=== PATIENT | female | born 1995 | race Caucasian/White ===

== ENCOUNTER 2018-06-21 11:46 | Outpatient (CLI) | payer MEDICAID ==
[2018-06-22 11:26] LABS: HEPATITIS C ANTIBODY NON-REACTIVE (NON-REACTIVE)
[2018-06-22 14:16] LABS: HIV AG/AB 4TH GEN NON-REACTIVE (NON-REACTIVE)
[2018-06-25 11:41] LABS: HSV 1 IGG TYPE SPECIFIC AB <0.90 index; HSV 2 IGG TYPE SPECIFIC AB <0.90 index
== END 2018-06-21 11:47 | disposition home or self-care (01) ==
LOC: LAB 11:46
PROVIDERS: ATTEND Nurse Practitioner Obstetrics & Gynecology
DX: Z11.3 Encounter for screening for infections with a predominantly sexual mode of transmission (principal)
CPT/HCPCS: 36415; 81599; 86592; 86695; 86696; 86803; 87389; 87529

== ENCOUNTER 2019-03-03 08:34 | Outpatient (CLI) | payer MEDICAID ==
--- NOTE | 2019-03-03 14:12 | Ultrasound Report ---
Reason: MASTALGIA Procedure Date: 03/03/2019 Accession Number: [id number] / [id number] Procedure: US - Breast Unilateral Limited CPT Code: Final Report FULL RESULT: EXAM: Breast Unilateral Limited, Breast Unilateral Limited DATE: 03/03/2019 9:59 AM CLINICAL HISTORY: MASTALGIA COMPARISON: None. TECHNIQUE: Whole breast ultrasound was performed of the left and right breast. Color Doppler was employed as appropriate. FINDINGS: All 4 quadrants as well as the retroareolar area were imaged bilaterally. No suspicious mass or collection is seen in either side. Normal-appearing breast glandular tissue is identified. In the left breast in the retroareolar region is a 0.7 cm wider than tall simple appearing cyst, typically benign. IMPRESSION: Benign findings RECOMMENDATION: Recommend routine annual Screening mammography starting at the age of 40 unless otherwise clinically indicated by risk factors. BIRADS CATEGORY 2: Benign findings RADIA
--- NOTE | 2019-03-03 14:12 | Ultrasound Report ---
Reason: MASTALGIA Procedure Date: 03/03/2019 Accession Number: [id number] / [id number] Procedure: US - Breast Unilateral Limited CPT Code: Final Report FULL RESULT: EXAM: Breast Unilateral Limited, Breast Unilateral Limited DATE: 03/03/2019 9:59 AM CLINICAL HISTORY: MASTALGIA COMPARISON: None. TECHNIQUE: Whole breast ultrasound was performed of the left and right breast. Color Doppler was employed as appropriate. FINDINGS: All 4 quadrants as well as the retroareolar area were imaged bilaterally. No suspicious mass or collection is seen in either side. Normal-appearing breast glandular tissue is identified. In the left breast in the retroareolar region is a 0.7 cm wider than tall simple appearing cyst, typically benign. IMPRESSION: Benign findings RECOMMENDATION: Recommend routine annual Screening mammography starting at the age of 40 unless otherwise clinically indicated by risk factors. BIRADS CATEGORY 2: Benign findings RADIA
== END 2019-03-03 08:35 | disposition home or self-care (01) ==
LOC: DI 08:34
PROVIDERS: ATTEND Physician Assistant
DX: N64.4 Mastodynia (principal); Z80.3 Family history of malignant neoplasm of breast
CPT/HCPCS: 76642

== ENCOUNTER 2019-09-17 08:00 | Outpatient (CLI) | payer MEDICAID | END 2019-09-17 23:59 | disposition home or self-care (01) | LOC: LAB.R 08:00 | PROVIDERS: ATTEND Nurse Practitioner Family | DX: Z20.828 Contact with and (suspected) exposure to other viral communicable diseases (principal); J02.9 Acute pharyngitis, unspecified | CPT/HCPCS: 81599 ==

== ENCOUNTER 2020-08-05 16:43 | Outpatient (CLI) | payer MEDICAID | END 2020-08-05 16:44 | disposition home or self-care (01) | LOC: COV 16:43 | PROVIDERS: ATTEND Family Medicine | DX: Z20.822 Contact with and (suspected) exposure to COVID-19 (principal) ==

== ENCOUNTER 2020-12-17 13:31 | Outpatient (CLI) | payer MEDICAID ==
--- NOTE | 2020-12-21 13:15 | Ultrasound Report ---
LIMITED ULTRASOUND OF RIGHT BREAST AND AXILLA: 12/17/2020 CLINICAL: Palpable right breast lump by physician. No prior exams were available for comparison. Color flow and real-time ultrasound of the right breast 10-12 o'clock, and axilla regions were perfor med. Ann scale images of the real-time examination were reviewed. The breast tissue of the right breast is homogeneous dense. There is a 1.2 cm x 0.7 cm x 0.4 cm irregular area of fibroglandular tissue in the right breast at 10 o'clock middle depth 8 cm from the nipple with the long axis parallel to the skin. This irregular a anay of fibroglandular tissue is hypoechoic with posterior acoustic enhancement. Color flow imaging d emonstrates that there is no vascularity present. This may correlate as palpated. IMPRESSION: PROBABLY BENIGN The 1.2 cm irregular area of fibroglandular tissue in the right breast has a differential diagnosis o f a possible developing fibroadenoma, or focal glandular tissue amidst dense fibrous tissue, and is probably benign. A follow-up right ultrasound in 6 months is recommended to demonstrate stability. Findings and recommendations were conveyed to the patient at time of exam. This exam was interpreted at Station ID: [id number]. Electronically Signed By: Judy bryant/:12/17/2020 14:49:52 Ultrasound BI-RADS: 3 Probably benign BI-RADS CATEGORY: (3) - 3 Ultrasound [id number] 6 month follow-up LATERALITY: (R)
== END 2020-12-17 13:32 | disposition home or self-care (01) ==
LOC: DI 13:31
PROVIDERS: ATTEND Obstetrics & Gynecology
DX: R92.8 Other abnormal and inconclusive findings on diagnostic imaging of breast (principal); Z80.3 Family history of malignant neoplasm of breast; Z11.3 Encounter for screening for infections with a predominantly sexual mode of transmission
CPT/HCPCS: 81599; 86592; 86695; 86696; 86803; 87340; 87389

== ENCOUNTER 2020-12-17 15:03 | Outpatient (CLI) | payer MEDICAID ==
[2020-12-18 10:51] LABS: HEPATITIS B SURFACE ANTIGEN NON-REACTIVE (NON-REACTIVE); HEPATITIS C ANTIBODY NON-REACTIVE (NON-REACTIVE)
[2020-12-18 15:12] LABS: HIV AG/AB 4TH GEN NON-REACTIVE (NON-REACTIVE)
[2020-12-22 12:11] LABS: HSV 1 IGG TYPE SPECIFIC AB <0.90 index; HSV 2 IGG TYPE SPECIFIC AB <0.90 index
== END 2020-12-17 15:04 | disposition home or self-care (01) ==
LOC: LAB 15:03
PROVIDERS: ATTEND Obstetrics & Gynecology
DX: Z11.3 Encounter for screening for infections with a predominantly sexual mode of transmission (principal)
CPT/HCPCS: 81599; 86592; 86695; 86696; 86803; 87340; 87389

== ENCOUNTER 2021-03-01 16:13 | Outpatient (CLI) | payer MEDICAID ==
[2021-03-01 23:02] LABS: CHLAMYDIA TRACHOMATIS DNA NEGATIVE (NEGATIVE); NEISSERIA GONORRHOEAE DNA NEGATIVE (NEGATIVE); TRICHOMONAS VAGINALIS DNA NEGATIVE (NEGATIVE)
[2021-03-01 23:46] LABS: BACTERIAL VAGINOSIS DNA NEGATIVE (NEGATIVE); CANDIDA GLABRATA DNA NEGATIVE (NEGATIVE); CANDIDA GROUP DNA POSITIVE (NEGATIVE); CANDIDA KRUSEI DNA NEGATIVE (NEGATIVE); TRICHOMONAS VAGINALIS DNA NEGATIVE (NEGATIVE)
== END 2021-03-01 23:59 | disposition home or self-care (01) ==
LOC: LAB.N 16:13
PROVIDERS: ATTEND Family Medicine
DX: R10.2 Pelvic and perineal pain (principal)
CPT/HCPCS: 87086; 87491; 87591; 87661; 87801

== ENCOUNTER 2021-03-23 08:00 | Outpatient (CLI) | payer MEDICAID ==
[2021-03-23 16:49] LABS: BILIRUBIN,URINE NEGATIVE (NEGATIVE); GLUCOSE, URINE (UA) NEGATIVE (NEGATIVE); KETONES,URINE (UA) NEGATIVE (NEGATIVE); LEUKOCYTE ESTERASE, URINE NEGATIVE (NEGATIVE); NITRITE,URINE NEGATIVE (NEGATIVE); OCCULT BLOOD,URINE NEGATIVE (NEGATIVE); PROTEIN,URINE NEGATIVE (NEGATIVE); UROBILINOGEN,URINE 0.2 (NORMAL) E.U./dL (NORMAL)
[2021-03-23 16:57] LABS: CLARITY,URINE CLEAR (CLEAR)
[2021-03-23 16:59] LABS: BACTERIA,URINE Rare /HPF (None Seen); RBC,URINE 0-5 /HPF (0-5); SQUAMOUS EPITHELIAL CELL,UR RARE Squamous (<= Few); WBC,URINE 0-3 /HPF (0-5)
[2021-03-23 21:02] LABS: BACTERIAL VAGINOSIS DNA NEGATIVE (NEGATIVE); CANDIDA GLABRATA DNA NEGATIVE (NEGATIVE); CANDIDA GROUP DNA POSITIVE (NEGATIVE); CANDIDA KRUSEI DNA NEGATIVE (NEGATIVE); TRICHOMONAS VAGINALIS DNA NEGATIVE (NEGATIVE)
[2021-03-23 22:02] LABS: CHLAMYDIA TRACHOMATIS DNA NEGATIVE (NEGATIVE); NEISSERIA GONORRHOEAE DNA NEGATIVE (NEGATIVE); TRICHOMONAS VAGINALIS DNA NEGATIVE (NEGATIVE)
== END 2021-03-23 23:59 ==
LOC: LAB.WC 08:00
PROVIDERS: ATTEND Nurse Practitioner Obstetrics & Gynecology
DX: R10.2 Pelvic and perineal pain (principal)
CPT/HCPCS: 81001; 87086; 87491; 87591; 87661; 87801

== ENCOUNTER 2021-05-05 13:58 | Outpatient (CLI) | payer MEDICAID ==
--- NOTE | 2021-05-06 10:00 | Ultrasound Report ---
LIMITED ULTRASOUND OF RIGHT BREAST: 05/05/2021 CLINICAL: Short term follow up of the right breast. Comparison is made to exams dated: 12/17/2020 ultrasound and 03/03/2019 ultrasound - [facility]. Color flow ultrasound of the right breast 10 o'clock region was performed on the areas of interest. Ann scale images of the real-time examination were reviewed. There is a 0.9 cm x 0.3 cm x 0.7 cm hypoechoic heterogeneous mass resembling a cluster of oval cysts with septated internal flores in the right breast at 10 o'clock middle depth 8 cm from the nipple. Th is cluster is hypoechoic with internal echoes. Color flow imaging demonstrates that there is no vasc ularity present. Findings are stable to slightly decreased in size compared to the prior study. IMPRESSION: PROBABLY BENIGN The 0.9 cm x 0.3 cm x 0.7 cm probable cluster of oval cysts in the right breast is probably benign. A follow-up ultrasound in 6 months is recommended. A follow-up ultrasound in 6 months is recommended to demonstrate stability. This exam was interpreted at Station ID: [id number]. Electronically Signed By: Rashi Young M.D. ddp/:05/05/2021 14:37:12 Ultrasound BI-RADS: 3 Probably benign BI-RADS CATEGORY: (3) - 3 Ultrasound [id number] 6 month follow-up LATERALITY: (B)
== END 2021-05-05 13:59 | disposition home or self-care (01) ==
LOC: DI 13:58
PROVIDERS: ATTEND Obstetrics & Gynecology
DX: N63.11 Unspecified lump in the right breast, upper outer quadrant (principal)

== ENCOUNTER 2021-10-27 11:41 | Outpatient (CLI) | payer MEDICAID ==
[2021-10-28 03:08] LABS: HBsAG SCREEN Negative (Negative)
[2021-10-28 05:10] LABS: HCV AB <0.1 s/co ratio (0.0-0.9); HIV SCREEN 4TH GENERATION Non Reactive (Non Reactive)
[2021-10-28 06:10] LABS: RPR Non Reactive (Non Reactive)
== END 2021-10-27 11:42 | disposition home or self-care (01) ==
LOC: LAB.N 11:41
PROVIDERS: ATTEND Nurse Practitioner Obstetrics & Gynecology
DX: Z11.3 Encounter for screening for infections with a predominantly sexual mode of transmission (principal)
CPT/HCPCS: 36415; 86592; 86803; 87340; 87389

== ENCOUNTER 2021-11-09 13:22 | Outpatient (CLI) | payer MEDICAID ==
--- NOTE | 2021-11-10 09:36 | Ultrasound Report ---
LIMITED ULTRASOUND OF RIGHT BREAST: 11/09/2021 CLINICAL: Patient returns for short term follow-up of a probably benign mass in the right breast. Comparison is made to exams dated: 05/05/2021 ultrasound, 12/17/2020 ultrasound, and 03/03/2019 [facility]. Color flow and real-time ultrasound of the right breast 10 o'clock region were performed. Ann scale images of the real-time examination were reviewed. There is a 1.5 cm x 1 cm x 0.4 cm irregular cluster of cysts in the right breast at 10 o'clock middle depth 8 cm from the nipple. This abnormality has not significantly changed over the past two exams. Color flow imaging demonstrates that there is no vascularity present. IMPRESSION: PROBABLY BENIGN The 1.5 cm cluster of cysts in the right breast is probably benign, most likely fibrocystic tissue. A follow-up right ultrasound in 6 months is recommended to demonstrate stability. Findings and recommendations were conveyed to the patient at time of exam. This exam was interpreted at Station ID: [id number]. Electronically Signed By: Judy bryant/:11/09/2021 14:18:17 Ultrasound BI-RADS: 3 Probably benign BI-RADS CATEGORY: (3) - 3 Ultrasound [id number] 6 month follow-up LATERALITY: (R)
== END 2021-11-09 13:23 | disposition home or self-care (01) ==
LOC: DI 13:22
PROVIDERS: ATTEND Physician Assistant
DX: N60.11 Diffuse cystic mastopathy of right breast (principal)

== ENCOUNTER 2021-11-16 14:13 | Outpatient (CLI) | payer MEDICAID ==
[2021-11-16 17:48] LABS: BASOPHILS % (AUTO) 0.3 %; EOSINOPHILS # (AUTO) 0.1 10^3/uL (0.0-0.7); EOSINOPHILS % (AUTO) 1.2 %; HGB - HEMOGLOBIN 12.7 g/dL (12.0-16.0); LYMPHOCYTES % (AUTO) 33.1 %; MEAN CORPUSCULAR HEMOGLOBIN 26.6 pg (27.0-31.0); MEAN CORPUSCULAR HGB CONC 31.8 g/dL (32.0-36.0); MEAN CORPUSCULAR VOLUME 83.9 fL (81.0-99.0); MEAN PLATELET VOLUME 9.2 fL (7.9-10.8); MONOCYTES # (AUTO) 0.6 10^3/uL (0.0-1.0); MONOCYTES % (AUTO) 10.2 %; NEUTROPHILS # (AUTO) 3.2 10^3/uL (1.5-6.6); NEUTROPHILS % (AUTO) 54.9 %; PLT - PLATELET COUNT 299 10^3/uL (130-450); RED BLOOD COUNT 4.77 10^6/uL (4.20-5.40); RED CELL DISTRIBUTION WIDTH 13.5 % (12.0-15.0); WHITE BLOOD COUNT 5.9 x10^3/uL (4.8-10.8)
[2021-11-16 18:03] LABS: ALBUMIN 4.7 g/dL (3.2-5.5); ALBUMIN/GLOBULIN RATIO 1.6 (1.0-2.2); BILIRUBIN,TOTAL 0.5 mg/dL (0.2-1.0); CALCIUM 9.8 mg/dL (8.5-10.3); CREATININE 0.6 mg/dL (0.4-1.0); POTASSIUM 3.8 mmol/L (3.5-5.0); TOTAL PROTEIN 7.7 g/dL (6.7-8.2)
[2021-11-16 18:19] LABS: THYROID STIMULATING HORMONE 1.74 uIU/mL (0.34-5.60)
== END 2021-11-16 14:14 | disposition home or self-care (01) ==
LOC: LAB.N 14:13
PROVIDERS: ATTEND Physician Assistant
DX: F32.A Depression, unspecified (principal)
CPT/HCPCS: 36415; 80053; 84443; 85025

== ENCOUNTER 2022-06-13 09:15 | Outpatient (CLI) | payer BC ==
--- NOTE | 2022-06-14 12:53 | Ultrasound Report ---
LIMITED ULTRASOUND OF RIGHT BREAST: 06/13/2022 CLINICAL: Patient returns for a 6 month follow up of the right breast. Comparison is made to exams dated: 11/09/2021 ultrasound, 05/05/2021 ultrasound, 12/17/2020 ultrasound, and 03/03/2019 ultrasound - [facility]. Color flow ultrasound of the right breast 10 o'clock region was performed. Ann scale images of the real-time examination were reviewed. There is a stable benign 1.5 cm x 1 cm x 0.4 cm cluster of cysts in the right breast at 10 o'clock mi ddle depth 8 cm from the nipple. Color flow imaging demonstrates that there is no vascularity presen t. IMPRESSION: BENIGN There is no sonographic evidence of malignancy. The stable 1.5 cm x 1 cm x 0.4 cm cluster of cysts i n the right breast is benign. This exam was interpreted at Station ID: [id number]. Electronically Signed By: Dylan Evans M.D. jr/:06/13/2022 12:30:00 Ultrasound BI-RADS: 2 Benign BI-RADS CATEGORY: (2) - 2 Unspecified - other recall n/a LATERALITY: (B)
== END 2022-06-13 09:16 | disposition home or self-care (01) ==
LOC: DI 09:15
PROVIDERS: ATTEND Physician Assistant
DX: N60.11 Diffuse cystic mastopathy of right breast (principal)